=== PATIENT | male | born 1960 | race Hispanic/Latino ===

== ENCOUNTER 2020-11-12 00:29 | Emergency (ER) | payer OTHER ==
--- NOTE | 2020-11-12 02:04 | EDPHYS ---
Physician Documentation [facility] Name: Rodriguez Bartholomew Jr Age: 60 yrs Sex: Male : 1960 Arrival Date: 11/12/2020 Time: 00:35 Bed 14 Private MD: ED Physician Franki Zhang HPI: 11/12 00:47 This 60 yrs old Male presents to ER via Unassigned with complaints of Foreign ma2 Body In Nose. 00:47 The patient presents with. Onset: The symptoms/episode began/occurred gradually, 1 ma2 hour(s) ago. Severity of symptoms: At their worst the symptoms were mild in the emergency department the symptoms are unchanged. The patient has not experienced similar symptoms in the past. patient state an unknown object went inside his right nostril and is sitting in his throat, he has throat itching and discomfort, no cough . he is able to eat and drink . Historical: - Allergies: 00:49 No Known Allergies; - Home Meds: 00:49 Blood Pressure Medicine [Active]; - PMHx: 00:49 Hypertension; - PSHx: 00:49 Appendectomy; - Immunization history:: Adult Immunizations not up to date. - Social history:: Patient/guardian denies using alcohol, street drugs, The patient lives with family, Smoking status: Patient denies any tobacco usage or history of. Patient/guardian denies using. - Family history:: not pertinent. ROS: 00:47 Constitutional: Negative for fever, chills, and weight loss. ma2 00:47 All other systems are negative. Exam: 00:47 Constitutional: This is a well developed, well nourished patient who is awake, alert, ma2 and in no acute distress. Head/Face: Normocephalic, atraumatic. Eyes: Pupils equal round and reactive to light, extra-ocular motions intact. Lids and lashes normal. Conjunctiva and sclera are non-icteric and not injected. Cornea within normal limits. Periorbital areas with no swelling, redness, or edema. ENT: Nares patent. No nasal discharge, no septal abnormalities noted. Tympanic membranes are normal and external auditory canals are clear. Oropharynx with no redness, swelling, or masses, exudates, or evidence of obstruction, uvula midline. Mucous membranes moist. Neck: Trachea midline, no thyromegaly or masses palpated, and no cervical lymphadenopathy. Supple, full range of motion without nuchal rigidity, or vertebral point tenderness. No Meningismus. Chest/axilla: Normal chest wall appearance and motion. Nontender with no deformity. No lesions are appreciated. Cardiovascular: Regular rate and rhythm with a normal S1 and S2. No gallops, murmurs, or rubs. Normal PMI, no JVD. No pulse deficits. Respiratory: Lungs have equal breath sounds bilaterally, clear to auscultation and percussion. No rales, rhonchi or wheezes noted. No increased work of breathing, no retractions or nasal flaring. Abdomen/GI: Soft, non-tender, with normal bowel sounds. No distension or tympany. No guarding or rebound. No evidence of tenderness throughout. Skin: Warm, dry with normal turgor. Normal color with no rashes, no lesions, and no evidence of cellulitis. MS/ Extremity: Pulses equal, no cyanosis. Neurovascular intact. Full, normal range of motion. Neuro: Awake and alert, GCS 15, oriented to person, place, time, and situation. Cranial nerves II-XII grossly intact. Motor strength 5/5 in all extremities. Sensory grossly intact. Cerebellar exam normal. Normal gait. Vital Signs: 00:47 BP 182 / 99; Pulse 99; Resp 18; Temp 97.7; Pulse Ox 98% on R/A; Weight 83.91 kg; Height wh 5 ft. 5 in. (165.10 cm); 02:00 BP 168 / 88; Pulse 88; Resp 18; Pulse Ox 98% on R/A; wh 00:47 Body Mass Index 30.79 (83.91 kg, 165.10 cm) MDM: 00:46 Patient medically screened. mn2 00:47 Differential diagnosis: sinusitis, foreign body in throat. [facility] 02:03 Data reviewed: vital signs, nurses notes. Counseling: I had a detailed discussion with ma2 the patient and/or guardian regarding: the historical points, exam findings, and any diagnostic results supporting the discharge/admit diagnosis, the presence of at least one elevated blood pressure reading (>120/80) during this emergency department visit, the need for outpatient follow up. Response to treatment: the patient's symptoms have markedly improved after treatment. 05/27 01:24 Order name: Soft Tissue Neck Wo Contr EDMS Administered Medications: No medications were administered Disposition: 11/12/20 02:03 Discharged to Home. Impression: Pain in throat. - Condition is Stable. - Discharge Instructions: Sore Throat, [id number]. - Medication Reconciliation Form, Thank You Letter, Antibiotic Education, Prescription Opioid Use form. - Follow up: Lexie Khan MD; When: Tomorrow; Reason: Continuance of care. Signatures: Dispatcher [employer] [facility] Ayan Iglesias, RN RN Franki Zhang MD MD ma2 Corrections: (The following items were deleted from the chart) 01:24 00:48 Soft Tissue Neck W/Contr+CT.RAD.BRZ ordered. [facility] 02:29 02:03 11/12/2020 02:03 Discharged to Home. Impression: Pain in throat. Condition is wh Stable. Forms are Medication Reconciliation Form, Thank You Letter, Antibiotic Education, Prescription Opioid Use. Follow up: Lexie Khan; When: Tomorrow; Reason: Continuance of care. ma2
--- NOTE | 2020-11-12 02:04 | ER ---
Nurse's Notes [facility] Name: Rodriguez Bartholomew Jr Age: 60 yrs Sex: Male : 1960 Arrival Date: 11/12/2020 Time: 00:35 Bed 14 Private MD: Diagnosis: Pain in throat Presentation: 11/12 00:47 Chief complaint: Patient states: he was weeding earlier when something went unto his nose and he feels like it is now stuck on his throat. Coronavirus screen: Client denies travel out of the [place] in the last 14 days. At this time, the client does not indicate any symptoms associated with coronavirus-19. Ebola Screen: Patient negative for fever greater than or equal to 101.5 degrees Fahrenheit, and additional compatible Ebola Virus Disease symptoms Patient denies exposure to infectious person. Initial Sepsis Screen: Does the patient meet any 2 criteria? HR > 90 bpm. Does the patient have a suspected source of infection? No. Patient's initial sepsis screen is negative. Risk Assessment: Do you want to hurt yourself or someone else? Patient reports no desire to harm self or others. Onset of symptoms was November 12, 2020. 00:47 Method Of Arrival: Ambulatory 00:47 Acuity: CONSTANCE 4 Historical: - Allergies: 00:49 No Known Allergies; - Home Meds: 00:49 Blood Pressure Medicine [Active]; - PMHx: 00:49 Hypertension; - PSHx: 00:49 Appendectomy; - Immunization history:: Adult Immunizations not up to date. - Social history:: Patient/guardian denies using alcohol, street drugs, The patient lives with family, Smoking status: Patient denies any tobacco usage or history of. Patient/guardian denies using. - Family history:: not pertinent. Screenin:50 Abuse screen: Denies threats or abuse. Denies injuries from another. Nutritional screening: No deficits noted. Tuberculosis screening: No symptoms or risk factors identified. Fall Risk None identified. Assessment: 00:50 General: Appears in no apparent distress. Behavior is calm, cooperative, appropriate for age. Pain: Denies pain. Neuro: Level of Consciousness is awake, alert, obeys commands, Oriented to person, place, time, situation, Appropriate for age. Cardiovascular: Capillary refill < 3 seconds. Respiratory: Airway is patent Respiratory effort is even, unlabored, Respiratory pattern is regular, symmetrical. GI: Abdomen is flat, non-distended. : No signs and/or symptoms were reported regarding the genitourinary system. EENT: Throat is pink. Derm: Skin is intact, is healthy with good turgor, Skin is pink, warm \T\ dry. normal. Musculoskeletal: Circulation, motion, and sensation intact. 02:00 Reassessment: Patient appears in no apparent distress at this time. No changes from previously documented assessment. Patient and/or family updated on plan of care and expected duration. Pain level reassessed. Patient is alert, oriented x 3, equal unlabored respirations, skin warm/dry/pink. Vital Signs: 00:47 BP 182 / 99; Pulse 99; Resp 18; Temp 97.7; Pulse Ox 98% on R/A; Weight 83.91 kg; Height 5 ft. 5 in. (165.10 cm); 02:00 BP 168 / 88; Pulse 88; Resp 18; Pulse Ox 98% on R/A; wh 00:47 Body Mass Index 30.79 (83.91 kg, 165.10 cm) ED Course: 00:35 Patient arrived in ED. bp1 00:40 Franki Zhang MD is Attending Physician. ma2 00:47 Ayan Iglesias, RN is Primary Nurse. 00:48 Triage completed. 00:51 Patient has correct armband on for positive identification. Bed in low position. Call light in reach. Side rails up X 1. Pulse ox on. NIBP on. 00:51 Arm band placed on right wrist. wh 01:40 Soft Tissue Neck Wo Contr In Process Unspecified. EDMS 02:03 Lexie Khan MD is Referral Physician. ma2 02:28 No provider procedures requiring assistance completed. Patient did not have IV access during this emergency room visit. Administered Medications: No medications were administered Outcome: 02:03 Discharge ordered by . ma2 02:29 Discharged to home ambulatory. 02:29 Condition: stable 02:29 Discharge instructions given to patient, Instructed on discharge instructions, follow up and referral plans. POC Demonstrated understanding of instructions, follow-up care, POC 02:29 Patient left the ED. Signatures: Dispatcher [employer] EDMO Juanalo, Winsy, RN RN wh Franki Zhang MD MD ma2 Melissa Garcia [facility]
[2020-11-12 03:58] VITALS: TEMP 97.7; O2SAT 98
[2020-11-12 03:59] VITALS: BP 168/88
--- NOTE | 2020-11-12 11:02 | RAD REPORT ---
EXAM DESCRIPTION: CT Neck COMPARISON: None. CLINICAL HISTORY: [facility] ? foreign body in throat? TECHNIQUE: Axial CT images are obtained from the skull base through the thoracic inlet without intra venous contrast. Multiplanar reformats were performed. Automated exposure control was utilized on the exam as a dose lowering technique. FINDINGS: Larynx, supraglottic, glottic, infraglottic airways: The larynx and the entire cervical ai rway are unremarkable. Nasopharynx, oropharynx, parotid glands, submandibular glands and tongue: The soft tissues of the deepika opharynx and oropharynx are normal. The parotid and both submandibular glands are normal. Inherent mu scles of the tongue and lingual tonsils are normal. Lymph nodes: No pathologically enlarged lymph nodes. Thyroid: Normal. Vascular structures: Normal. Cervical esophagus: Normal. Musculoskeletal: Moderate cervical spondylosis. Visualized upper thorax and mediastinum: The visualized portions of the lung apices and upper mediast inum are normal. Visualized structures of the skull base: Visualized portions of the skull base, mastoid air cells, mi ddle ear, and paranasal sinuses are normal. IMPRESSION: No acute findings of the neck. No visualized foreign bodies. Electronically signed by: Ricky Shabazz MD 11/12/2020 1:54 AM CDT Due to temporary technical issues with the PACS/Fluency reporting system, reports are being signed by the in house radiologist without review as a courtesy to ensure prompt reporting. The interpreting r adiologist is fully responsible for the content of the report.
== END 2020-11-12 02:29 | disposition home or self-care (01) ==
LOC: ER 00:29
DX: R07.0 Pain in throat (principal); I10 Essential (primary) hypertension
CPT/HCPCS: 70490; 99283